=== PATIENT | female | born 2000 | race Caucasian/White ===

== ENCOUNTER 2022-09-04 16:44 | Inpatient (IN) ==
[2022-09-04] MEDS ORDERED: GENTAMICIN CONSULT ACTIVE PRN (16:49)
[2022-09-04] MEDS ORDERED: SUCCINYLCHOLINE CHLORIDE 20 MG/ML 10 ML VIAL IV ONE (16:53)
[2022-09-04] MEDS ORDERED: fentaNYL citrate 100 MCG/2 ML VIAL ONE ×2 (16:53→17:33)
[2022-09-04] MEDS ORDERED: PROPOFOL IV EMULSION 10 MG/ML 20 ML VIAL IV ONE (16:53)
[2022-09-04] MEDS ORDERED: LIDOCAINE 2% MPF LOCAL 5 ML VIAL INFIL ONE (16:53)
[2022-09-04] MEDS ORDERED: CITRIC ACID/SODIUM CITRATE 15 ML UDC ONE (16:57)
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
[2022-09-04] MEDS ORDERED: CLINDAMYCIN/D5W 900 MG/50 ML BAG IV SCH (17:00)
[2022-09-04] MEDS ORDERED: DEXTROSE 5% IV SCH (17:00)
[2022-09-04] MEDS ORDERED: GENTAMICIN SULFATE IV SCH (17:00)
[2022-09-04] MEDS ORDERED: LACTATED RINGER'S 1,000 ML IV SCH ×2 (17:00→18:06)
[2022-09-04] MEDS ORDERED: PROMETHAZINE HCL 6.25 MG in SODIUM CHLORIDE 0.9% 50 ML IV PRN (17:02)
[2022-09-04] MEDS ORDERED: HYDROmorphone INJ 1 MG/ML SYRINGE IV PRN (17:02)
[2022-09-04] MEDS ORDERED: ONDANSETRON INJ 2 MG/ML 2 ML VIAL IV PRN ×2 (17:02→18:06)
[2022-09-04] MEDS ORDERED: ATROPINE SULFATE 0.1 MG/ML 10ML SYR IV PRN (17:02)
[2022-09-04] MEDS ORDERED: KETOROLAC 30 MG/ML VIAL IV PRN ×2 (17:02→18:06)
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
[2022-09-04] MEDS ORDERED: CITRIC ACID/SODIUM CITRATE 15 ML UDC PO ONE (17:04)
[2022-09-04] MEDS ORDERED: ceFAZolin 330 MG/ML 1 GM VIAL ONE (17:06)
[2022-09-04] MEDS ORDERED: OXYTOCIN 10 UNITS/ML 10ML VIAL ONE ×4 (17:25)
[2022-09-04] MEDS ORDERED: DEXAMETHASONE SOD INJ 4 MG/ML VIAL ONE (17:30)
[2022-09-04 17:39] LABS: Hematocrit (blood only) 35.4 % (37.0-47.0); Hemoglobin 12.4 g/dl (12.0-16.0); Mean Corpuscular Hemoglobin 31.6 pg (25.0-34.0); Mean Corpuscular Volume 90.1 fL (80.0-100.0); Mean Platelet Volume 11.5 fL (9.4-12.4); Platelet Count 251 K/uL (130-400); RDW Standard Deviation 46.2 fL (36.4-46.3); Red Blood Count 3.93 M/uL (4.20-5.40); White Blood Count 16.09 K/ul (4.8-10.8)
[2022-09-04] MEDS ORDERED: NALOXONE HCL 0.4 MG/1 ML VIAL/CARP IV PRN (18:00)
[2022-09-04] MEDS ORDERED: SODIUM CHLORIDE 0.9% 1000ML 1,000 ML IV SCH (18:00)
[2022-09-04] MEDS ORDERED: HYDROmorphone PCA 30 MG/30 ML IV PRN (18:00)
--- NOTE | 2022-09-04 18:00 | Operative Report ---
PG Post Operative Report Pre & Post Diagnosis breech, labor I identified the patient and participated in the time-out.: Yes Procedure Low segment transverse section Surgeon Nanette Beck MD, FACOG Manager Database Administration Georgia Enriquez RN Estimated Blood Loss 600 Findings Consistent with Post-Op Diagnosis Specimens Cord gases Cord blood Description of Procedure General anesthetic had been given by anesthesia patient was prepped and draped with a leftward tilt preoperative antibiotics had been given in appropriate timing by anesthesiology. timeout was performed. Scalpel was used to make a Pfannenstiel incision on the lower abdomen. We then cut through the subcutaneous fat down to the level of the anterior rectus sheath fascia this was cut in the midline and then extended laterally with the curved Lopez scissors. At this stage we then placed 2 Kevin clamps on the anterior aspect of the fascia. Using the curved Lopez's we are able to dissect the fascia superiorly away from the rectus muscles. Care was taken to maintain hemostasis. Kevin clamps were then placed to the inferior aspect of the anterior sheath of the fascia. Fascia was then dissected away from the rectus muscles inferiorly towards the pubic bone. A Kevin was then placed in the midline both inferiorly and superiorly. This was to allow exposure by retraction rectus muscles were in the midline with were then able to cut through the peritoneum and then enter the peritoneal cavity. Opening was enlarged to allow exposure of the peritoneal cavity both superiorly and inferiorly. Once adequate space was obtained a bladder retractor was placed to expose the lower segment Metzenbaums were used to dissect the bladder flap inferiorly away from the uterus. This was done sharply bladder retractor was then repositioned to expose the lower segment of the uterus Fresh scalpel was used to make a low transverse incision on the uterus. Uterus was then entered bluntly with the operators finger, membranes ruptured and the opening was enlarged using the operators fingers bluntly pulling superiorly and inferiorly to allow exposure. Baby was in ralph breech position however was floating when relief from the pelvis and I was able to pull a the right leg and foot out first the left leg was then delivered baby's back was placed anterior lap sponge applied gentle traction then the arms were swept forward against the chest and delivered head w as then delivered by flexion and pressure from the resident care assistant on the abdomen no excessive extension cord clamped and cut Fluid was clear cord clamped and cut cord gases obtained cord blood obtained b desean handed to pediatrics. Placenta removed was removed with traction we ensure the entire placenta was removed with a moist lap sponge into the uterus uterine anatomy was normal there was no sign of bicornate or septum adnexa were bilaterally normal Uterus was then exteriorized. IV Pitocin had been started by anesthesia tone improved there were no extensions the uterus was then closed using 0 Monocryl in a 2 layer closure the first layer closed in a running locked fashion from left to right and then a second closure from left to right in a running nonlocked fashion. At this stage hemostasis was excellent. Uterus was placed back in the peritoneal cavity with suction irrigation out and inspection of the uterus at this stage revealed excellent hemostasis Retractors were removed urine color was clear at this stage of the case we inspected the rectus muscles they were hemostatic fascia was closed with 0 Vicryl subcutaneous fat was irrigated and closed with 3-0 Vicryl skin closed with 4-0 subcuticular Monocryl I attest to the content of the Intraoperative Record and any orders documented therein. Any exceptions are noted below. OB Procedure Charges 83082
[2022-09-04 18:03] LABS: Basophils # (auto) 0.04 K/uL (0-0.2); Basophils % (auto) 0.2 %; Immature Granulocytes # (auto) 0.13 K/uL (0.01-0.20); Immature Granulocytes % (auto) 0.8 %; Lymphocytes # (auto) 1.01 K/uL (1.2-3.4); Lymphocytes % (auto) 6.3 %; Monocytes # (auto) 0.41 K/uL (0.11-0.59); Monocytes % (auto) 2.5 %; Neutrophils % (auto) 90.2 %
[2022-09-04] MEDS ORDERED: ACETAMINOPHEN 1,000 MG/100 ML VIAL IV STA (18:03)
[2022-09-04] MEDS ORDERED: DIPHTHERIA/TETANUS/PERTUSSIS 0.5mL SYR/VIAL (Age 7+yrs) IM ONE (18:06)
[2022-09-04] MEDS ORDERED: diphenhydrAMINE 50 MG/ML VIAL IV PRN (18:06)
[2022-09-04] MEDS ORDERED: SENNA 8.6 MG TAB PO PRN (18:06)
[2022-09-04] MEDS ORDERED: BENZOCAINE 20% AER SPR 82.5 GM CAN EXT PRN (18:06)
[2022-09-04] MEDS ORDERED: HYDROCORTISONE ACETATE 25 MG SUPP PR PRN (18:06)
[2022-09-04] MEDS ORDERED: PROMETHAZINE HCL 25 MG in SODIUM CHLORIDE 0.9% 50 ML IV PRN (18:06)
[2022-09-04] MEDS ORDERED: diphenhydrAMINE Capsule 25 MG CAP PO PRN (18:06)
[2022-09-04] MEDS ORDERED: oxyCODONE/ACETAMINOPHEN 5mg/325mg TAB PO PRN (18:06)
[2022-09-04] MEDS ORDERED: MAGNESIUM HYDROXIDE SUSP 30 ML UDC PO PRN (18:06)
[2022-09-04] MEDS ORDERED: COUGH DROP (SUGAR FREE) LOZ 24 LOZ/1 BOX BUCCAL ONE (18:45)
--- NOTE | 2022-09-04 18:58 | Anesthesiology Progress Note ---
Date of Service September 04, 2022 Anesthesia Post Procedure Vital Signs Vital Signs: Pulse BP Pulse Ox 09/04/22 18:53 65 142/88 H 98 09/04/22 18:48 64 97 09/04/22 18:43 70 149/87 H 98 09/04/22 18:38 63 97 09/04/22 18:33 98 09/04/22 18:33 66 09/04/22 18:33 67 138/81 09/04/22 18:28 72 97 09/04/22 18:23 99 09/04/22 18:23 84 09/04/22 18:23 83 142/75 H 09/04/22 18:18 77 97 09/04/22 18:13 77 143/74 H 97 09/04/22 18:08 80 97 09/04/22 18:03 97 09/04/22 18:03 88 09/04/22 18:03 88 142/75 H Transfer of Care Handoff Completed per policy Notes Mental Status: alert / awake / arousable Patient Amnestic to Procedure: Yes Nausea / Vomiting: adequately controlled Pain: adequately controlled Airway Patency, RR, SpO2: stable & adequate BP & HR: stable & adequate Hydration State: stable & adequate Anesthetic Complications: no major complications apparent
[2022-09-04] MEDS: OXYTOCIN 20 UNITS in LACTATED RINGER'S 1,000 ML IV SCH (19:46)
[2022-09-04] MEDS ORDERED: hydrOXYzine HCl 25 MG TAB PO PRN (19:49)
[2022-09-04] MEDS ORDERED: PRAZOSIN HCL 1 MG CAP PO ONE (19:50)
[2022-09-05] MEDS: DOCUSATE SODIUM 100 MG CAP PO SCH ×3 (01:04→23:54)
[2022-09-05] MEDS: SIMETHICONE 80 MG CHEW PO SCH ×5 (01:05→20:38)
[2022-09-05] MEDS: OXYTOCIN 20 UNITS in LACTATED RINGER'S 1,000 ML IV SCH (04:17)
--- NOTE | 2022-09-05 05:57 | Obstetrical Progress Note ---
Date of Service <Aniyah DodsonDaryl Velarde DO - Last Filed: 09/05/22 07:12> September 05, 2022 Assessment & Plan <Aniyah VelardeDO - Last Filed: 09/05/22 07:12> (1) Status post section: plan for d/c Boo, do a trial of OOB and ambulation and then progress diet as tolerated - concerns for insurance with baby, will consult case management - will place order for breast pump for home - plan to transition from AUTOMATIC HEMMER to oral pain medications this afternoon <Nanette Beck MD, FACOG - Last Filed: 09/05/22 07:16> (1) Status post section: Subjective <Aniyah S. DO Syd - Last Filed: 09/05/22 07:12> Carissa is a 21 y/o female who is POD #1 following delivery at 39 weeks. She reports feeling well overall this morning. Mild abdominal cramping & well managed on analgesics. Tolerating meals overnight. Still has Boo in. Not passing gas and no bowel movement. Has some persistent lochia with some improvement this morning. Currently breast feeding and supplementing with formula. Review of Systems Denies fever, chills, sweats Denies shortness of breath, difficulty breathing, chest pain, palpitations, chest pressure. Denies breast pain. Denies dysuria. Denies headache or changes in vision. Physical Exam <Aniyah SDaryl SydDO - Last Filed: 09/05/22 07:12> General: Alert, oriented. No acute distress. Cardiac: Regular rate and rhythm, no murmurs/rubs/gallops. Respiratory: Clear to auscultation bilaterally a/p, no wheezes/rales/rhonchi. No increased work of breathing. Symmetrical chest rise. No respiratory distress. Abdomen: Soft, nontender, nondistended. Bowel sounds present. Uterus: Uterine fundus firm, palpable 1 cm below umbilicus. Surgical dressing clean and dry. Lower Extremities: No lower extremity edema or swelling. No deep calf pain. Lucius's negative bilaterally. Results & Data ([facility]) <Aniyah SDaryl Velarde DO - Last Filed: 09/05/22 07:12> Vital Signs (Past 12 Hours) Vital Signs Temp Pulse Pulse Resp BP BP Pulse Ox 09/05/22 03:05 36.5 C 72 18 115/71 95 09/05/22 00:04 18 95 09/05/22 00:04 37.3 C 92 H 18 139/69 95 09/04/22 23:00 18 95 09/04/22 22:00 18 95 09/04/22 22:20 36.6 C 96 H 18 136/83 95 09/04/22 21:15 37.1 C 81 18 124/78 97 09/04/22 21:15 18 97 09/04/22 20:28 67 98 09/04/22 20:23 64 130/89 99 09/04/22 20:18 65 99 09/04/22 20:13 62 132/89 99 09/04/22 20:08 61 99 09/04/22 20:03 98 09/04/22 20:03 76 09/04/22 20:03 67 128/85 09/04/22 19:58 73 98 09/04/22 19:53 74 128/86 98 09/04/22 19:48 73 98 09/04/22 19:43 76 136/95 99 09/04/22 19:38 72 100 09/04/22 19:33 99 09/04/22 19:33 66 09/04/22 19:33 78 133/84 09/04/22 19:28 66 100 09/04/22 19:23 64 136/87 100 09/04/22 19:18 72 98 09/04/22 19:13 69 144/84 H 99 09/04/22 19:08 61 98 09/04/22 19:03 98 09/04/22 19:03 68 09/04/22 19:03 65 133/87 09/04/22 18:58 62 98 09/04/22 18:53 65 142/88 H 98 09/04/22 18:48 64 97 09/04/22 18:43 70 149/87 H 98 09/04/22 18:38 63 97 09/04/22 18:33 98 09/04/22 18:33 66 09/04/22 18:33 67 138/81 09/04/22 18:28 72 97 09/04/22 18:23 99 09/04/22 18:23 84 09/04/22 18:23 83 142/75 H 09/04/22 18:18 77 97 09/04/22 18:13 77 143/74 H 97 09/04/22 18:08 80 97 09/04/22 18:03 97 09/04/22 18:03 88 09/04/22 18:03 88 142/75 H O2 Del Method 09/05/22 03:05 Room Air 09/05/22 00:04 09/05/22 00:04 Room Air 09/04/22 23:00 09/04/22 22:00 09/04/22 22:20 Room Air 09/04/22 21:15 Room Air 09/04/22 21:15 09/04/22 20:28 09/04/22 20:23 09/04/22 20:18 09/04/22 20:13 09/04/22 20:08 09/04/22 20:03 09/04/22 20:03 09/04/22 20:03 09/04/22 19:58 09/04/22 19:53 09/04/22 19:48 09/04/22 19:43 09/04/22 19:38 09/04/22 19:33 09/04/22 19:33 09/04/22 19:33 09/04/22 19:28 09/04/22 19:23 09/04/22 19:18 09/04/22 19:13 09/04/22 19:08 09/04/22 19:03 09/04/22 19:03 09/04/22 19:03 09/04/22 18:58 09/04/22 18:53 09/04/22 18:48 09/04/22 18:43 09/04/22 18:38 09/04/22 18:33 09/04/22 18:33 09/04/22 18:33 09/04/22 18:28 09/04/22 18:23 09/04/22 18:23 09/04/22 18:23 09/04/22 18:18 09/04/22 18:13 09/04/22 18:08 09/04/22 18:03 09/04/22 18:03 09/04/22 18:03 <Nanette Beck MD, FACOG - Last Filed: 09/05/22 07:16> Co-Signing Physician Notes Resident Physician Supervision Note: I was present with Dr. Velarde during the history and exam. I discussed the case with the resident and agree with the findings and plan as documented in the note. Any exceptions or clarifications are listed here: [None] Documented By: Nanette Beck MD, FACOG Resident Activity Tracking <Aniyah Velarde, DO - Last Filed: 09/05/22 07:12> Resident Involvement: Resident Care Provided Care Provided: OB Delivery (Post )
[2022-09-05] MEDS ORDERED: FERROUS SULFATE 325 MG TAB PO SCH ×2 (08:00→21:00)
[2022-09-05] MEDS ORDERED: PRENATAL VITAMIN 1 TAB PO SCH ×2 (08:00→21:00)
[2022-09-05 08:04] LABS: Basophils # (auto) 0.02 K/uL (0-0.2); Basophils % (auto) 0.1 %; Eosinophils # (auto) 0.02 K/uL (0-0.50); Eosinophils % (auto) 0.1 %; Hematocrit (blood only) 30.9 % (37.0-47.0); Hemoglobin 10.5 g/dl (12.0-16.0); Immature Granulocytes # (auto) 0.06 K/uL (0.01-0.20); Immature Granulocytes % (auto) 0.4 %; Lymphocytes # (auto) 1.35 K/uL (1.2-3.4); Lymphocytes % (auto) 9.7 %; Mean Corpuscular Volume 91.2 fL (80.0-100.0); Mean Platelet Volume 11.3 fL (9.4-12.4); Monocytes # (auto) 0.56 K/uL (0.11-0.59); Neutrophils # (auto) 11.92 K/uL (1.40-6.50); Neutrophils % (auto) 85.7 %; Platelet Count 206 K/uL (130-400); RDW Coefficient of Variation 14.2 % (11.5-14.5); Red Blood Count 3.39 M/uL (4.20-5.40); White Blood Count 13.93 K/ul (4.8-10.8)
[2022-09-05] MEDS ORDERED: Nursing to Pharmacy Communication SCH ×2 (08:45→20:30)
[2022-09-05] MEDS: IBUPROFEN 600 MG TAB PO PRN ×4 (12:01→23:54)
[2022-09-05] MEDS ORDERED: bisacodyL 5 MG TABEC PO SCH (20:00)
[2022-09-06] MEDS: IBUPROFEN 600 MG TAB PO PRN ×2 (04:08→09:08)
--- NOTE | 2022-09-06 06:22 | Obstetrical Progress Note ---
Date of Service <Aniyah Velarde DO - Last Filed: 09/06/22 07:45> September 06, 2022 Assessment & Plan <Aniyah Velarde DO - Last Filed: 09/06/22 07:45> (1) Status post section: Boo is out, continue OOB and ambulation and progress diet as tolerated - will place order for breast pump for home - Has not needed any opioid pain medications overnight and declines prescription for home - Discharge instructions reviewed <Cynthia Vital, DO - Last Filed: 09/06/22 07:49> (1) Status post section: Subjective <Aniyah Velarde, DO - Last Filed: 09/06/22 07:45> Carissa is a 21 y/o female who is POD #2 following delivery at 39 weeks. She reports feeling well overall this morning. Mild abdominal cramping & well managed on analgesics. Tolerating meals overnight. Voiding. Is not passing gas and no bowel movement. Has some persistent lochia with some improvement this morning. Currently breast feeding and supplementing with formula. Review of Systems Denies fever, chills, sweats Denies shortness of breath, difficulty breathing, chest pain, palpitations, chest pressure. Denies breast pain. Denies dysuria. Denies headache or changes in vision. Physical Exam <Aniyah Velarde DO - Last Filed: 09/06/22 07:45> General: Alert, oriented. No acute distress. Cardiac: Regular rate and rhythm, no murmurs/rubs/gallops. Respiratory: Clear to auscultation bilaterally a/p, no wheezes/rales/rhonchi. No increased work of breathing. Symmetrical chest rise. No respiratory distress. Abdomen: Soft, nontender, nondistended. Uterus: Uterine fundus firm, palpable 1 cm below umbilicus. Surgical dressing clean and dry. Lower Extremities: No lower extremity edema or swelling. No deep calf pain. Lucius's negative bilaterally. Results & Data ([facility]) <Aniyah Velarde DO - Last Filed: 09/06/22 07:45> Vital Signs (Past 12 Hours) Vital Signs Temp Pulse Resp BP Pulse Ox O2 Del Method 09/05/22 23:50 36.7 C 77 18 108/67 96 Room Air 09/05/22 19:40 Room Air 09/05/22 19:40 36.6 C 84 18 125/75 98 Room Air <Cynthia Vital DO - Last Filed: 09/06/22 07:49> Co-Signing Physician Notes Resident Physician Supervision Note: I was present with Dr. Velarde during the history and exam. I discussed the case with the resident and agree with the findings and plan as documented in the note. Any exceptions or clarifications are listed here: POD#2 doing well. ok. Desires DC home. Declines offer of Rx for pain medication - feels like she is doing well without and would prefer not to have this. Followup in office 6w. Documented By: Cynthia Vital DO Resident Activity Tracking <Aniyah Velarde, - Last Filed: 09/06/22 07:45> Resident Involvement: Resident Care Provided Care Provided: OB Delivery (Post )
[2022-09-06 06:40] LABS: Hematocrit (blood only) 29.8 % (37.0-47.0)
--- NOTE | 2022-09-06 08:38 | Obstetrical Progress Note ---
Date of Service September 06, 2022 Assessment & Plan Admission and Anticipated Discharge Date Admission Date: September 04, 2022 Subjective Patient changed her mind and is now requesting pain medication. Rx #20 tabs sent to pharmacy on file. Janiaocet. Results & Data ([facility]) Vital Signs (Past 12 Hours) Vital Signs Temp Pulse Resp BP Pulse Ox O2 Del Method 09/05/22 23:50 36.7 C 77 18 108/67 96 Room Air PG Care Time/CCT Total # of Minutes Spent Total Time Spent with Patient: Total time spent is greater than 50% in coordination of care (as documented) at patient's floor/unit and/or counseling patient: Coding Level of Care Code None
[2022-09-06] MEDS: DOCUSATE SODIUM 100 MG CAP PO SCH (09:08)
[2022-09-06] MEDS: SIMETHICONE 80 MG CHEW PO SCH (09:08)
[2022-09-06] MEDS ORDERED: bisacodyL 10 MG SUPP PR PRN (17:53)
--- NOTE | 2022-09-10 10:30 | Discharge Summary ---
Date of Service September 10, 2022 Admission HPI Per Admitting Provider Visit CARLY Calculator Estimated Delivery Date Method Current WG Current Estimate 09/11/22 LMP (Certain) 38w 3d Other Estimates 09/15/22 Ultrasound #1 37w 6d LMP: 12/05/21 : 1 Full term: 0 Premature: 0 Total Number of Induced Abortions: 0 Total Number of Spontaneous Abortions: 0 Ectopics: 0 Multiple births: 0 Number of Living Children: 0 and Delivery Plans Transfer into care @ 18+ weeks Flu shot given 05/14/22 SB BREECH PRESENTATION-08/17/2022 Admission Exam (Per Admitting) Constitutional WD/WN, vitals as above well developed and well nourished Respiratory normal respiratory effort, lungs clear to auscultation normal respiratory effort Cardiovascular RRR, no murmur, no edema Gastrointestinal (Abdomen) normal bowel sounds, soft, nontender, no hepatosplenomegaly Discharge Data Consultations 09/04/22 16:49 Consult Anesthesiology Stat Hospital Course (1) Status post section: Boo is out, continue OOB and ambulation and progress diet as tolerated - will place order for breast pump for home - Has not needed any opioid pain medications overnight and declines prescription for home - Discharge instructions reviewed Supervising Physician Co-Signing Physician Notes Resident Physician Supervision Note: I was present with Dr. Velarde during the history and exam. I discussed the case with the resident and agree with the findings and plan as documented in the note. Any exceptions or clarifications are listed here: POD#2 doing well. ok. Desires DC home. Declines offer of Rx for pain medication - feels like she is doing well without and would prefer not to have this. Followup in office 6w. Documented By: Cynthia Vital DO Coding Level of Care Code None Diagnoses Status post section Z98.891
== END 2022-09-06 12:40 | disposition home or self-care (01) | DRG 788 ==
LOC: OPB 16:44 → 4S1 16:45 → 4E2 21:42